=== PATIENT | female | born 1985 | race Caucasian/White ===

== ENCOUNTER 2019-08-30 19:58 | Emergency (ER) | payer OTHER, SELFPAY ==
[2019-08-30 20:04] VITALS: BP 134/75; PULSE 60; RESP 18; TEMP 37.4; O2SAT 100; BMI 27.3
--- NOTE | 2019-08-30 20:12 | ECG_ITS ---
Measurements Intervals [place] Rate: 56 P: 21 PA: 154 QRS: 35 QRSD: 98 T: 30 QT: 419 QTc: 405 SINUS BRADYCARDIA WITH SINUS ARRHYTHMIA No previous ECG available for comparison Electronically Signed On 08-31-2019 10:01:49 CDT by Zac Danielle M.D. [email or web address]
--- NOTE | 2019-08-30 20:13 | XRR_ITS ---
PROCEDURE INFORMATION: Exam: XR Chest, 1 View Exam date and time: 08/30/2019 9:18 PM Age: 34 years old Clinical indication: Cough TECHNIQUE: Imaging protocol: XR of the chest Views: 1 view. COMPARISON: CR Chest 1 [place] [id number] 07/23/2013 4:23 PM FINDINGS: Lungs: No focal peripheral lung consolidation, air bronchogram formation, or silhouette sign. Pleural space: No pleural effusion or pneumothorax. Heart/Mediastinum: The cardiac silhouette is not enlarged. The mediastinal contours are normal. Bones/joints: No acute osseous abnormality. XR/XR chest 1V portable [id number] IMPRESSION: No radiographic evidence of pneumonia.
--- NOTE | 2019-08-30 20:21 | W.ED.CHESTPA ---
HPI - Chest Pain General: Chief Complaint: Chest Pain Stated Complaint: CP Time Seen by Provider: 08/30/19 20:11 History of Present Illness: HPI narrative: Amy is a 34-year-old female who comes in complaining of feeling lightheaded and dizzy with occasional sharp right-sided chest pains. She has had the symptoms numerous times in the past but today was worse than normal. She is unaware of any exacerbating or alleviating factors. She is had this worked up only one other time and it was diagnosed as anxiety. Patient states that currently she just feels weak and tired. Associated symptoms: Deny abdominal pain, diaphoresis, dyspnea, fever(s), nausea, palpitations, syncope or vomiting Review of Systems General: Reports: other (negative unless marked) Const: Denies: fever, chills, body aches, fatigue, malaise or diaphoresis Eyes: Denies: change in vision or blurry vision ENMT: Denies: throat pain, painful swallowing, hoarseness, ear pain, ear discharge, Change in hearing or nasal discharge Card: Reports: chest pain; Denies: palpitations, irregular heart rhythm, syncope, pre-syncope, shortness of breath on exertion or shortness of breath when lying down Resp: Denies: shortness of breath, productive cough, non-productive cough, wheezing, coughing up blood or chest congestion GI: Denies: abdominal pain, nausea, vomiting, vomiting blood, coffee grounds in vomit, diarrhea, constipation, cramping, blood in stool or black tarry stool : Denies: flank pain, painful urination, urinary frequency, urinary urgency, decreased urine ouput, urinary incontinence or blood in urine Musc: Denies: neck pain, back pain, extremity pain, extremity swelling, joint pain, joint swelling, joint warmth or joint stiffness Skin/Breast: Denies: rash, skin tenderness or yellow skin Neuro: Denies: headache, numbness in extremities, weakness in extremities, changes in sensation, lack of coordination, difficulty walking, dizziness, vertigo or confusion Endo: Denies: excessive thirst, tired all the time, cold intolerance, excessive sweating, flushing or hot flashes Jeff/Lymph: Denies: easy bruising, easy bleeding, petechiae or enlarged lymph nodes All/Imm: Denies: hives, throat swelling, tongue swelling, facial swelling or acute wheezing PFSH ED PFS: Medical History (Updated 08/30/19 @ 21:38 by Melisa Brandon) No pertinent past medical history Surgical History (Updated 08/30/19 @ 20:50 by Melisa Brandon) No history of previous surgery Social History Smoking and tobacco status: current every day smoker Female Reproductive History: Date of last menstrual period: 08/04/19 Physical Exam Const: COMMON NORMALS: no apparent distress, oriented x3, no limitations, healthy appearing and well nourished EXAM LIMITATIONS: no altered mental status GENERAL APPEARANCE: cooperative, well kempt and well developed ORIENTATION/CONSCIOUSNESS: Yes awake HENMT: COMMON NORMALS: normocephalic, head/scalp atraumatic, hearing grossly normal bilaterally, external ears normal, EAC's normal, external nose normal and moist oral mucous membranes HEAD & SCALP: normal to inspection, normocephalic and atraumatic FACE & SINUS: normal facial exam and face symmetric NOSE: external nose normal and nares normal EXTERNAL EAR: Yes external ears normal EXTERNAL AUDITORY CANAL: EAC's normal MOUTH: oral and palatal mucosa normal and tongue normal Eye: COMMON NORMALS: PERRL, EOMs intact bilaterally, conjunctivae normal and no scleral icterus GENERAL EYE: normal appearance of both eyes and normal light reflex CONJUNCTIVA: Yes conjunctivae normal SCLERA: sclerae normal CORNEA: Yes corneas normal PUPIL: Yes PERRL DIRECT OPHTHALMOSCOPY: Yes normal light reflex Neck/C-Spine: COMMON NORMALS: full ROM, no lymphadenopathy, supple, no meningeal signs and no JVD GENERAL: Yes normal visual inspection and Yes trachea midline CERVICAL SPINE: Yes cervical ROM normal Chest: COMMONS NORMALS: inspection of chest normal and palpation of chest normal Resp: COMMON NORMALS: normal respiratory effort, no retractions, no use of accessory muscles and clear to auscultation bilaterally EFFORT & INSPECTION: Yes able to speak in complete sentences AUSCULTATION: clear to auscultation bilaterally Cardio: COMMON NORMALS: no JVD, regular rate, regular rhythm, S1 normal heart sound, S2 normal heart sound, no gallops, no clicks, no murmurs and no rub JUGULAR VENOUS DISTENTION: no JVD RATE: regular rate RHYTHM: regular rhythm HEART SOUNDS: S1 normal and S2 normal GI: COMMON NORMALS: soft to palpation, non-tender, no hepatosplenomegaly and no masses INSPECTION: Yes normal to inspection PALPATION: Yes soft and Yes no hepatosplenomegaly : COMMON NORMALS: Yes no CVA tenderness BLADDER/KIDNEY EXAM: Yes no CVA tenderness Back/Pelvis: COMMON NORMALS: no CVA tenderness, thoracic and lumbar spine normal to inspection, no thoracic nor lumbar tenderness and thoraco-lumbar ROM normal Extremity: COMMON NORMALS: normal to inspection, full ROM, normal capillary refill, no joint enlargement, no clubbing, cyanosis or edema and no calf tenderness Neuro: COMMON NORMALS: oriented x3, CN's II-XII intact bilaterally, moves all extremities, no focal motor deficits and no sensory deficits noted MENINGEAL SIGNS: Yes no meningeal signs Psych: COMMON NORMALS: mental status grossly normal, thought process normal, cooperative, affect normal, speech normal and activity/motor behavior normal APPEARANCE: Yes well kempt SPEECH: Yes normal speech THOUGHT PROCESS: normal thought process Skin: COMMON NORMALS: no rashes or lesions noted, skin turgor normal, no jaundice, no petechiae and no mottling GENERAL SKIN EXAM: no rashes or lesions noted and turgor normal Course Vital Signs: Vital signs: Vital Signs Temperature 97.0 F L 08/30/19 21:56 Pulse Rate 65 08/30/19 21:56 Respiratory Rate 16 08/30/19 21:56 Blood Pressure 124/80 08/30/19 21:56 Pulse Oximetry 97 08/30/19 21:56 MDM - Chest Pain MDM Narrative: Medical decision making narrative: Amy is a 34-year-old female who comes in complaining of palpitations. She is had numerous spells like this in the past but a cause cannot be determined. Admittedly she is only gone to the doctor one time for that. Here her EKG shows a sinus arrhythmia with no acute blocks, ST segment changes or other concerning findings. Specifically there is no evidence of Xjzup-Tnirbrvbi-Xwvih syndrome, obstructed AV pathway, bundle branch block bifascicular block, Brugada syndrome, Zrre-Zuiebb-Rlwmex syndrome, epsilon wave, or short or long QT syndrome. The patient has not had any chest discomfort except for occasional sharp pain. Her d-dimer is negative. She does not describe any ripping or tearing sensation or migration of her pain. She has a normal chest x-ray and equal pulses in her carotids, radial pulses, femoral pulses, popliteal pulses and dorsalis pedis pulses. I see no sign of acute coronary syndrome aortic dissection or pulmonary embolism. The patient's potassium is slightly low which could cause an occasional skipped beat or sensation of palpitations. The patient is taken some potassium here and her magnesium is normal. Patient agrees to follow-up as an outpatient with a government gauger or return here if she has any more symptoms. She declines waiting for a second EKG and troponin. Lab Data: Attestation: I reviewed the patient's lab results. Labs: Lab Results 08/30/19 08/30/19 08/30/19 Range/Units 20:26 20:26 20:26 WBC 8.8 (4.0-10.0) 10^3/ uL RBC 4.39 (4.1-5.3) 10^6/u L Hgb 13.1 (11.5-15.3) g/dL Hct 39.5 (37.0-47.0) % MCV 90.0 (81-99) fL MCH 29.8 (28.0-34.0) pg MCHC 33.2 (30.0-36.0) g/dL RDW 12.4 (12.1-15.1) % Plt Count 209 (130-400) 10^3/c mm MPV 10.9 H (7.4-10.4) fL Neut % (Auto) 45.7 % Lymph % (Auto) 43.3 % [place] % (Auto) 8.5 % Eos % (Auto) 1.7 % Baso % (Auto) 0.6 % Neut # (Auto) 4.0 (1.8-7.7) 10^3/u L Lymph # (Auto) 3.8 (0.8-4.8) 10^3/u L [place] # (Auto) 0.8 (0.2-0.9) 10^3/u L Eos # (Auto) 0.2 (0.0-0.8) 10^3/u L Baso # (Auto) 0.1 (0.0-0.1) 10^3/u L Nucleated RBC % (a uto) 0 % Nucleated RBCs # 0.0 /100WBC D-Dimer (0-0.59) ug/mIFE U Sodium 137 (136-145) mmol/L Potassium 3.2 L (3.5-5.1) mmol/L Chloride 101 (98-107) mmol/L Carbon Dioxide 23 (22-29) mmol/L Anion Gap 16.2 (5-19) BUN 12 (6-20) mg/dL Creatinine 0.9 (0.5-0.9) mg/dL GFR Calculation 72.1 L (90-130) mL/min Glucose 112 (65-115) mg/dL Calculated Osmolal ity 281 L (285-295) mOsm/k g Calcium 9.4 (8.5-10.5) mg/dL Magnesium 2.1 (1.7-2.3) mg/dL Total Bilirubin 0.2 (0.15-1.2) mg/dL AST 19 (0-32) U/L ALT 14 (0-33) U/L Alkaline Phosphata se 79 (35-105) IU/L Troponin T Baselin e 6 (0-10) ng/mL Total Protein 7.0 (6.6-8.7) g/dL Albumin 4.3 (3.5-5.2) g/dL Globulin 2.7 (1.3-4.6) g/dL TSH 1.43 (0.27-4.20) uIU/ mL HCG, Qual (Negative) Urine Color (Yellow) Urine Appearance (CLEAR) Urine pH (5-7) Ur Specific Gravit y (1.005-1.030) Urine Protein (Negative) Urine Glucose (UA) (Normal) Urine Ketones (Negative) Urine Blood (Negative) Urine Nitrate (Negative) Urine Bilirubin (NEGATIVE) Urine Urobilinogen (Negative) mg/dL Ur Leukocyte Lynn ase (Negative) Urine RBC (0-2) /hpf Urine WBC (0-5) /hpf Ur Squamous Epith Cells (0-5) Urine Bacteria (NONE) Urine Opiates Scre en (Negative) ng/mL Ur Barbiturates Sc reen (Negative) ng/mL Ur Phencyclidine S crn (Negative) ng/mL Ur Amphetamines Sc reen (Negative) ng/mL U Benzodiazepines Scrn (Negative) ng/mL Urine Cocaine Scre en (Negative) ng/mL U Marijuana (THC) Screen (Negative) ng/mL 08/30/19 08/30/19 08/30/19 Range/Units 20:26 20:26 20:45 WBC (4.0-10.0) 10^3/ uL RBC (4.1-5.3) 10^6/u L Hgb (11.5-15.3) g/dL Hct (37.0-47.0) % MCV (81-99) fL MCH (28.0-34.0) pg MCHC (30.0-36.0) g/dL RDW (12.1-15.1) % Plt Count (130-400) 10^3/c mm MPV (7.4-10.4) fL Neut % (Auto) % Lymph % (Auto) % [place] % (Auto) % Eos % (Auto) % Baso % (Auto) % Neut # (Auto) (1.8-7.7) 10^3/u L Lymph # (Auto) (0.8-4.8) 10^3/u L [place] # (Auto) (0.2-0.9) 10^3/u L Eos # (Auto) (0.0-0.8) 10^3/u L Baso # (Auto) (0.0-0.1) 10^3/u L Nucleated RBC % (a uto) % Nucleated RBCs # /100WBC D-Dimer 0.36 (0-0.59) ug/mIFE U Sodium (136-145) mmol/L Potassium (3.5-5.1) mmol/L Chloride (98-107) mmol/L Carbon Dioxide (22-29) mmol/L Anion Gap (5-19) BUN (6-20) mg/dL Creatinine (0.5-0.9) mg/dL GFR Calculation (90-130) mL/min Glucose (65-115) mg/dL Calculated Osmolal ity (285-295) mOsm/k g Calcium (8.5-10.5) mg/dL Magnesium (1.7-2.3) mg/dL Total Bilirubin (0.15-1.2) mg/dL AST (0-32) U/L ALT (0-33) U/L Alkaline Phosphata se (35-105) IU/L Troponin T Baselin e (0-10) ng/mL Total Protein (6.6-8.7) g/dL Albumin (3.5-5.2) g/dL Globulin (1.3-4.6) g/dL TSH (0.27-4.20) uIU/ mL HCG, Qual Negative (Negative) Urine Color Yellow (Yellow) Urine Appearance Sl hazy (CLEAR) Urine pH 7 (5-7) Ur Specific Gravit y 1.010 (1.005-1.030) Urine Protein Neg (Negative) Urine Glucose (UA) Norm (Normal) Urine Ketones Negative (Negative) Urine Blood Neg (Negative) Urine Nitrate Negative (Negative) Urine Bilirubin Neg (NEGATIVE) Urine Urobilinogen Norm (Negative) mg/dL Ur Leukocyte Lynn ase Trace H (Negative) Urine RBC 0-4 H (0-2) /hpf Urine WBC 5-10 H (0-5) /hpf Ur Squamous Epith Cells 5-10 H (0-5) Urine Bacteria 1+ H (NONE) Urine Opiates Scre en (Negative) ng/mL Ur Barbiturates Sc reen (Negative) ng/mL Ur Phencyclidine S crn (Negative) ng/mL Ur Amphetamines Sc reen (Negative) ng/mL U Benzodiazepines Scrn (Negative) ng/mL Urine Cocaine Scre en (Negative) ng/mL U Marijuana (THC) Screen (Negative) ng/mL 08/30/19 Range/Units 20:45 WBC (4.0-10.0) 10^3/ uL RBC (4.1-5.3) 10^6/u L Hgb (11.5-15.3) g/dL Hct (37.0-47.0) % MCV (81-99) fL MCH (28.0-34.0) pg MCHC (30.0-36.0) g/dL RDW (12.1-15.1) % Plt Count (130-400) 10^3/c mm MPV (7.4-10.4) fL Neut % (Auto) % Lymph % (Auto) % [place] % (Auto) % Eos % (Auto) % Baso % (Auto) % Neut # (Auto) (1.8-7.7) 10^3/u L Lymph # (Auto) (0.8-4.8) 10^3/u L [place] # (Auto) (0.2-0.9) 10^3/u L Eos # (Auto) (0.0-0.8) 10^3/u L Baso # (Auto) (0.0-0.1) 10^3/u L Nucleated RBC % (a uto) % Nucleated RBCs # /100WBC D-Dimer (0-0.59) ug/mIFE U Sodium (136-145) mmol/L Potassium (3.5-5.1) mmol/L Chloride (98-107) mmol/L Carbon Dioxide (22-29) mmol/L Anion Gap (5-19) BUN (6-20) mg/dL Creatinine (0.5-0.9) mg/dL GFR Calculation (90-130) mL/min Glucose (65-115) mg/dL Calculated Osmolal ity (285-295) mOsm/k g Calcium (8.5-10.5) mg/dL Magnesium (1.7-2.3) mg/dL Total Bilirubin (0.15-1.2) mg/dL AST (0-32) U/L ALT (0-33) U/L Alkaline Phosphata se (35-105) IU/L Troponin T Baselin e (0-10) ng/mL Total Protein (6.6-8.7) g/dL Albumin (3.5-5.2) g/dL Globulin (1.3-4.6) g/dL TSH (0.27-4.20) uIU/ mL HCG, Qual (Negative) Urine Color (Yellow) Urine Appearance (CLEAR) Urine pH (5-7) Ur Specific Gravit y (1.005-1.030) Urine Protein (Negative) Urine Glucose (UA) (Normal) Urine Ketones (Negative) Urine Blood (Negative) Urine Nitrate (Negative) Urine Bilirubin (NEGATIVE) Urine Urobilinogen (Negative) mg/dL Ur Leukocyte Lynn ase (Negative) Urine RBC (0-2) /hpf Urine WBC (0-5) /hpf Ur Squamous Epith Cells (0-5) Urine Bacteria (NONE) Urine Opiates Scre en Negative (Negative) ng/mL Ur Barbiturates Sc reen Negative (Negative) ng/mL Ur Phencyclidine S crn Negative (Negative) ng/mL Ur Amphetamines Sc reen Negative (Negative) ng/mL U Benzodiazepines Scrn Negative (Negative) ng/mL Urine Cocaine Scre en Negative (Negative) ng/mL U Marijuana (THC) Screen Negative (Negative) ng/mL Imaging Data^: CXR: My impression: No acute cardiopulmonary findings. EKG Data^: EKG 1: Attestation: I personally reviewed and interpreted this EKG as follows: EKG interpretation date: 08/30/19 EKG interpretation time: 20:26 Interpretation: Normal sinus rhythm at 56 beats a minute, sinus arrhythmia, possible U waves present, no other acute ST or T wave changes. Discharge Plan Discharge Patient Disposition: Home, Self-Care Clinical Impression: Palpitations Chest pain Qualifiers: Chest pain type: unspecified Qualified Code(s): R07.9 - Chest pain, unspecified Condition: Stable Discharge Orders: Discharge Order (Routine); Ordered 08/30/19 Ordered By: Melisa Brandon Referrals: Anival Da Silva FNP [Primary Care Provider] - Michelle Alejandra MD [Physician] - 1-3 days Discharge Diet: Advance as tolerated Discharge Activity: Increase activity as tolerated Patient Instructions: Chest Pain (ED), Palpitations (ED) Activity Restrictions/Additional Instructions: Please return to the ER immediately for any of the signs or symptoms listed on your discharge instruction sheets, worsening/changing of your symptoms, you are not getting better as quickly as expected, or for ANY other cause or concerns. You have been offered further evaluation and care including further observation and EKG testing along with troponin testing but have declined. If your symptoms worsen, you change your mind or have anything else that bothers you you are more than welcome to return to the ER for recheck. As this is a recurrent problem be certain to follow-up with Dr. Alejandra for further evaluation and care. Discharge Date/Time: 08/30/19 21:58 Coding Level of Care Code ED Public Health Registrar for Chg Fwd Exam Comprehensive
[2019-08-30 20:31] VITALS: BP 114/76; PULSE 54; RESP 18; O2SAT 99
[2019-08-30 20:32] LABS: Basophils # 0.1 10^3/uL (0.0-0.1); Basophils % 0.6 %; Eosinophils # 0.2 10^3/uL (0.0-0.8); Eosinophils % 1.7 %; Hematocrit 39.5 % (37.0-47.0); Hemoglobin 13.1 g/dL (11.5-15.3); Lymphocytes # 3.8 10^3/uL (0.8-4.8); Lymphocytes % 43.3 %; Mean Corpuscular HGB Conc 33.2 g/dL (30.0-36.0); Mean Corpuscular Hemoglobin 29.8 pg (28.0-34.0); Mean Platelet Volume 10.9 fL (7.4-10.4); Monocytes # 0.8 10^3/uL (0.2-0.9); Monocytes % 8.5 %; Neutrophils % 45.7 %; Nucleated Red Blood Cells % 0 %; Platelet Count 209 10^3/cmm (130-400); Red Blood Count 4.39 10^6/uL (4.1-5.3); Red Cell Distribution Width 12.4 % (12.1-15.1); White Blood Count 8.8 10^3/uL (4.0-10.0)
[2019-08-30] MEDS: acetaminophen 500 mg Tablet 1000 MG PO (20:37)
[2019-08-30 20:38] VITALS: BP 111/86; BP 112/86; BP 132/86; PULSE 54; PULSE 62; PULSE 64
[2019-08-30] MEDS: aspirin 325 mg Tablet PO (20:39)
[2019-08-30] MEDS: sodium chloride 0.9% 1,000 ML 100 ML IV (20:39)
[2019-08-30 20:54] LABS: HCG, Serum Qual Negative (Negative); Troponin(5th) Baseline 6 ng/mL (0-10)
[2019-08-30 20:55] VITALS: BP 113/75; PULSE 55; RESP 19; O2SAT 97
[2019-08-30 20:55] LABS: D Dimer 0.36 ug/mIFEU (0-0.59)
[2019-08-30 21:02] LABS: Alanine Aminotransferase 14 U/L (0-33); Albumin Level 4.3 g/dL (3.5-5.2); Alkaline Phosphatase 79 IU/L (35-105); Anion Gap 16.2 (5-19); Aspartate Amino Transferase 19 U/L (0-32); Blood Urea Nitrogen 12 mg/dL (6-20); Calcium 9.4 mg/dL (8.5-10.5); Carbon Dioxide 23 mmol/L (22-29); Chloride 101 mmol/L (98-107); Globulin 2.7 g/dL (1.3-4.6); Glomerular Filtration Rate 72.1 mL/min (90-130); Glucose 112 mg/dL (65-115); Magnesium 2.1 mg/dL (1.7-2.3); Osmolality Calculated 281 mOsm/kg (285-295); Potassium 3.2 mmol/L (3.5-5.1); Sodium 137 mmol/L (136-145); Thyroid Stimulating Hormone 1.43 uIU/mL (0.27-4.20); Total Bilirubin 0.2 mg/dL (0.15-1.2)
[2019-08-30 21:12] LABS: Amphetamines Screen Urine Negative (Negative); Barbiturates Screen Urine Negative (Negative); Benzodiazepines Screen Urine Negative (Negative); Cocaine Screen Urine Negative (Negative); Opiate Screen Urine Negative (Negative); PCP Screen Urine Negative (Negative); THC Screen Urine Negative (Negative)
[2019-08-30 21:15] LABS: Bacteria Urine 1+; Bilirubin Urine Neg (NEGATIVE); Blood Urine Neg (Negative); Glucose Urine UA Norm (Normal); Ketones Urine Negative (Negative); Leukocyte Esterase Urine Trace (Negative); Nitrate Urine Negative (Negative); Protein Urine Neg (Negative); RBC Urine 0-4 /hpf (0-2); Urine Appearance SL Hazy (CLEAR); Urine Color Yellow (Yellow); Urobilinogen Urine Norm (Negative); pH Urine 7 (5-7)
[2019-08-30] MEDS: potassium chloride oral liq 20 mEq/15 mL UDC 40 MEQ PO (21:28)
[2019-08-30 21:56] VITALS: BP 124/80; PULSE 65; RESP 16; TEMP 36.1; O2SAT 97
== END 2019-08-30 21:58 | disposition home or self-care (01) ==
PROVIDERS: Emergency Provider Emergency Medicine; Family Provider Nurse Practitioner Family; PCP Nurse Practitioner Family
DX: R07.9 Chest pain, unspecified (principal); R00.2 Palpitations; F17.200 Nicotine dependence, unspecified, uncomplicated
CPT/HCPCS: 12345; 71045; 80053; 80306; 81001; 83735; 84443; 84484; 84703; 85025; 85378; 93005; 96360; 96361; 99284; J7030

== ENCOUNTER 2020-01-22 15:35 | Emergency (ER) | payer OTHER, SELFPAY ==
[2020-01-22 15:42] VITALS: BP 115/70; PULSE 69; RESP 18; TEMP 36.2; O2SAT 99; BMI 26.4
--- NOTE | 2020-01-22 15:57 | ED_ITS ---
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 in OR here in the hospital day and when she was closing the case she stuck her left index finger with the needle and mandie blood complaint: Needlestick injury Onset (ago): minute(s) Associated symptoms: Deny chest pain, dyspnea, headache(s), nausea, rash or vomiting Review of Systems Const: Denies: fever(s), chills or body aches Eyes: Denies: change in vision or blurry vision ENMT: Denies: throat pain or nasal congestion Card: Denies: chest pain or dyspnea on exertion Resp: Denies: dyspnea, productive cough or non-productive cough GI: Denies: abdominal pain, nausea or vomiting Musc: Reports: extremity pain (Needlestick to finger left hand) Skin/Breast: Denies: rash Neuro: Denies: headache(s) Psych: Denies: anxiety or depression Jeff/Lymph: Denies: easy bruising PFSH ED PFSH: Medical History (Updated 01/22/20 @ 15:57 by MARTHA Gallardo) No pertinent past medical history Surgical History No history of previous surgery Family History Other CAD (coronary artery disease) Cancer Hyperlipidemia Hypertension Stroke Social History Smoking and tobacco status: current every day smoker cigarettes Packs smoked per day: 0.5 Alcohol intake: never Female Reproductive History: Date of last menstrual period: 08/04/19 Physical Exam Const: COMMON NORMALS: no acute distress Skin: OTHER: Puncture wound left hand finger Course Vital Signs: Vital signs: Vital Signs Temperature 97.1 F L 01/22/20 15:42 Pulse Rate 69 01/22/20 15:42 Respiratory Rate 18 01/22/20 15:42 Blood Pressure 115/70 01/22/20 15:42 Pulse Oximetry 99 01/22/20 15:42 Discharge Plan Discharge Patient Disposition: Home Clinical Impression: Accidental hypodermic needlestick injury Condition: Stable Prescriptions: No Action multivitamin Capsule 1 cap PO DAILY RF: 0 fexofenadine [Mikayla Allergy] 180 mg tablet 180 mg PO DAILY RF: 0 Discharge Orders: Discharge Order (Routine); Ordered 01/22/20 Ordered By: Anival Da Silva Referrals: Anival Da Silva, MARTHA [Primary Care Provider] - Discharge Diet: Usual diet Discharge Activity: Resume usual activity Patient Instructions: Blood/Body Fluid Exposure - Occupational, Needle Stick Injuries (ED) Activity Restrictions/Additional Instructions: Follow-up with employee health as directed follow guidance in needlestick policy the hospital provides, if any signs and symptoms of infection develop please let play health no Coding Level of Care Code ED Car Lubricator for Rashaad Winchester
[2020-01-22 16:31] VITALS: BP 115/77; PULSE 68; RESP 14; O2SAT 100
[2020-01-22 17:13] LABS: HIV 1 & 2 Antibody Non-Reactive (Non-Reactiv); HIV 1 & 2 Antigen Non-Reactive (Non-Reactiv)
[2020-01-22 17:20] LABS: Hepatitis A Antibody IgM Non-Reactive (Nonreactive); Hepatitis B Core IgM Non-Reactive (Nonreactive); Hepatitis B Surface Antigen Non-Reactive (Nonreactive); Hepatitis C Virus Antibody Non-Reactive (Nonreactive)
== END 2020-01-22 16:32 | disposition home or self-care (01) ==
LOC: ER 16:06
PROVIDERS: Emergency Provider Nurse Practitioner Family
DX: S61.231A Puncture wound without foreign body of left index finger without damage to nail, initial encounter (principal); W46.0XXA Contact with hypodermic needle, initial encounter; Y92.234 Operating room of hospital as the place of occurrence of the external cause; F17.210 Nicotine dependence, cigarettes, uncomplicated
CPT/HCPCS: 12345; 36415; 80074; 87806; 99281; 99282

== ENCOUNTER → 2020-02-26 11:06 | Outpatient (BNVA) | payer OTHER, SELFPAY | PROVIDERS: Visit Provider Family Medicine | DX: Z20.828 Contact with and (suspected) exposure to other viral communicable diseases (principal) | CPT/HCPCS: 87635 ==

== ENCOUNTER → 2020-03-17 12:54 | Outpatient (BNVA) | payer OTHER, SELFPAY | PROVIDERS: Visit Provider Family Medicine | DX: Z11.59 Encounter for screening for other viral diseases (principal); Z20.828 Contact with and (suspected) exposure to other viral communicable diseases | CPT/HCPCS: 87635 ==

== ENCOUNTER → 2020-03-19 12:32 | Outpatient (BNVA) | payer OTHER, SELFPAY | PROVIDERS: Visit Provider Family Medicine | DX: Z11.59 Encounter for screening for other viral diseases (principal); Z20.828 Contact with and (suspected) exposure to other viral communicable diseases | CPT/HCPCS: 87635 ==

== ENCOUNTER → 2020-07-03 08:13 | Outpatient (BNVA) | payer OTHER, BC, SELFPAY | PROVIDERS: Visit Provider Nurse Practitioner | DX: Z20.822 Contact with and (suspected) exposure to COVID-19 (principal) | CPT/HCPCS: 87635 ==

== ENCOUNTER 2021-05-27 09:34 | Emergency (ER) | payer OTHER, SELFPAY ==
[2021-05-27 09:47] VITALS: BP 118/84; PULSE 64; RESP 16; TEMP 36.7; O2SAT 99; BMI 27.1
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
--- NOTE | 2021-05-27 10:33 | XR_ITS ---
WS: [id number] Left leg including the tibia and fibula, AP and lateral views, 05/27/2021 Clinical Data: trauma Comparison: None. Findings: No fractures or dislocations are seen. The tibia and fibula are intact. The soft tissues are normal. XR/XR tibia fibula LT 2V 13518 Impression: Negative for fracture.
[2021-05-27] MEDS: ibuprofen 800 mg tablet PO (11:06)
[2021-05-27 11:30] VITALS: BP 119/67; PULSE 68; RESP 14; O2SAT 99
== END 2021-05-27 11:31 ==
PROVIDERS: Emergency Provider Nurse Practitioner Family
DX: Z04.1 Encounter for examination and observation following transport accident (principal); V89.2XXA Person injured in unspecified motor-vehicle accident, traffic, initial encounter; F17.210 Nicotine dependence, cigarettes, uncomplicated
CPT/HCPCS: 73590; 99283

== ENCOUNTER 2021-06-01 15:45 | Outpatient (CLI) | payer OTHER, SELFPAY ==
--- NOTE | 2021-06-01 15:58 | XR_ITS ---
WS: [id number] XR cervical spine 3V* [id number] REASON FOR EXAM: CERVICAL PAIN FINDINGS: Mild reversal of the normal lordosis of the cervical spine above the C6 level. No vertebral body compression deformity or other focal vertebral body abnormality. Mild narrowing of the C7-T1 disc interspace. Mild/moderate change in the facet joints at C7-T1. XR/XR cervical spine 3V* [id number] IMPRESSION: Abnormal alignment of the cervical spine as above. Degenerative spondylosis at C7-T1.
== END 2021-06-01 15:46 | disposition home or self-care (01) ==
LOC: RAD 15:51
PROVIDERS: PCP Family Medicine; Visit Provider Family Medicine
DX: M54.12 Radiculopathy, cervical region (principal); M47.813 Spondylosis without myelopathy or radiculopathy, cervicothoracic region
CPT/HCPCS: 72040

== ENCOUNTER 2021-06-29 10:34 | Observation (INO) | payer BC, SELFPAY ==
[2021-06-29 11:34] VITALS: BP 126/85; PULSE 88; RESP 18; TEMP 37.1; O2SAT 99; BMI 27.0
--- NOTE | 2021-06-29 11:54 | US_ITS ---
WS: [id number] EARLY OBSTETRICAL ULTRASOUND (<14 WEEKS). HISTORY: eval for ectopic preg, status post RIGHT oophorectomy and tubal ligation. COMPARISON: No similar studies. Transvaginal imaging is performed. There is an irregular shaped fluid collection in the endometrial c anal. Not a typical appearance for a gestational sac, or a normal gestational sac. The collection is elongated. If this is a gestational sac measurements correspond to gestation of 6 weeks and 3 days. No RIGHT adnexal mass. The RIGHT ovary was removed. In the LEFT adnexa the ovary is identified and contain several cysts. There is a thick wall cyst with slight increased vascularity which is probably a corpus luteum. The largest cyst measures 1.5 x 1.7 x 1.3 cm. Just lateral to the LEFT ovary is a hypoechoic mass with a central cystic structure. This i s a thick wall cystic structure with only minimal peripheral increased vascularity. This structure me asures 1.9 x 1.6 x 1.9 cm and is suspicious for an ectopic . Small amount of free fluid in the cul-de-sac. US/US OB <=14 wk fetus w transvag IMPRESSION: 1. Small amount of fluid along the endometrial canal but no yolk sac or pole identified. 2. Thick-walled mass within the LEFT adnexa just lateral to the ovary highly s uspicious for an ectopic . Recommend serial follow-up beta hCG levels and possible repeat ultrasound if necessary. 3. Small amount of free fluid in the cul-de-sac. Notified Aung Feliciano MD at 06/29/2021 1:34 PM.
[2021-06-29 14:08] LABS: Basophils % 0.5 %; Eosinophils % 0.5 %; Hematocrit 39.7 % (37.0-47.0); Hemoglobin 13.4 g/dL (11.5-15.3); Lymphocytes % 25.3 %; Mean Corpuscular HGB Conc 33.8 g/dL (30.0-36.0); Mean Corpuscular Hemoglobin 29.8 pg (28.0-34.0); Mean Corpuscular Volume 88.2 fl (81-99); Mean Platelet Volume 10.4 fL (7.4-10.4); Monocytes # 0.5 10^3/uL (0.2-0.9); Monocytes % 6.6 %; Neutrophils # 5.25 10^3/uL (1.8-7.7); Neutrophils % 66.8 %; Nucleated Red Blood Cells % 0 %; Platelet Count 241 10^3/cmm (130-400); Red Cell Distribution Width 12.6 % (12.1-15.1); White Blood Count 7.9 10^3/uL (4.0-10.0)
--- NOTE | 2021-06-29 14:43 | W.ED.PREGNAN ---
Documented by User: [email or web address] Buckley 06/29/21 16:35 HPI - General: Chief complaint: OB/Uterine Contractions Stated complaint: Sent from [facility] office for lab and US Time Seen by Provider: 06/29/21 14:04 History of Present Illness: Patient is a 35-year-old female that was sent by Dr. Crook with concerns for an ectopic . Patient had a tubal ligation performed approximately 7 years ago. She is currently in the process of getting set up with a doctor in [place] to perform reversal. Her last menstrual period was on May 21, 2021. She had a positive test today and contacted Dr. Crook. He told her to come to the ED to get labs and an ultrasound done for suspicion for an ectopic . Patient is currently asymptomatic. She is not having any vaginal bleeding, vaginal discharge, abdominal pain, nausea/vomiting, fever or chills. Date of Last Menstrual Period: 05/20/21 Associated symptoms: Deny abdominal pain, dysuria, headache(s), nausea or vomiting Review of Systems Const: Denies: fever(s), chills or fatigue Eyes: Denies: change in vision or eye discomfort ENMT: Denies: throat pain, odynophagia, nasal discharge or nasal congestion Card: Denies: chest pain, palpitations, edema, swelling of feet/ankles, dyspnea on exertion or orthopnea Resp: Denies: dyspnea, productive cough or non-productive cough GI: Denies: abdominal pain, nausea, vomiting, diarrhea, constipation or hematochezia : Denies: flank pain, dysuria or hematuria Musc: Denies: neck pain, back pain or extremity swelling Skin/Breast: Denies: rash or new lesions Neuro: Denies: headache(s) PFSH ED PFSH: Medical History (Updated 06/29/21 @ 17:54 by Gianni Lynn MD) No pertinent past medical history Denies diabetes, asthma, hypertension, seizures, DVT/PE PMD: Dr. Martinez in [facility] Surgical History (Updated 06/29/21 @ 17:54 by Gianni Lynn MD) History of tubal ligation 2009- tubal ligation by Dr. Tim via umbilicus Status post unilateral salpingo-oophorectomy 2015---laparoscopic right salpingo-oophorectomy performed for a 10 cm dermoid cyst performed by Dr. De Souza at [facility] [place]. Pelvic washings were negative for malignancy. 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 Fallopian tube pathology was benign. ---> At the time of surgery normal left ovary and signs of tubal ligation noted on left tube Family History (Updated 06/29/21 @ 17:57 by Gianni Lynn MD) Father CAD (coronary artery disease) Grandfather CAD (coronary artery disease) Maternal Diabetes Paternal Grandmother Cancer Breast cancer in maternal grandmother and great grand mother Other Hyperlipidemia Female Reproductive History: Date of last menstrual period: 05/20/21 Physical Exam Const: COMMON NORMALS: no acute distress, patient oriented x3 and alert HENMT: COMMON NORMALS: normocephalic HEAD & SCALP: normocephalic MOUTH: Normal oral and palatal mucosa present THROAT: posterior oropharynx normal and uvula midline Neck/C-Spine: COMMON NORMALS: supple GENERAL: Yes normal visual inspection Resp: COMMON NORMALS: normal respiratory effort, No retractions, No use of accessory muscles and clear to auscultation bilaterally AUSCULTATION: clear to auscultation bilaterally Cardio: COMMON NORMALS: regular rate, regular rhythm, S1 normal heart sound present, S2 normal heart sound present, No gallops present (Cardio), No clicks present (Cardio), No murmurs present (Cardio) and Peripheral pulses 2+ throughout RATE: regular rate RHYTHM: regular rhythm HEART SOUNDS: S1 normal heart sound present and S2 normal heart sound present PERIPHERAL PULSES: Peripheral pulses 2+ throughout GI: COMMON NORMALS: Normal to inspection, nondistended, normoactive bowel sounds present, Soft to palpation, non-tender and no masses PALPATION: Yes Soft to palpation : COMMON NORMALS: Yes no CVA tenderness BLADDER/KIDNEY EXAM: Yes no CVA tenderness Back/Pelvis: COMMON NORMALS: no CVA tenderness Extremity: COMMON NORMALS: normal to inspection Neuro: COMMON NORMALS: patient oriented x3 and moves all extremities SENSORIUM/ORIENTATION: Yes alert Skin: GENERAL SKIN EXAM: dry skin Course Reevaluation(s): Reevaluation #1: I contacted Dr. De Souza and told her about patient case and her being after tubal ligation. Ultrasound findings suggestive for possible ectopic . She is going to come here to the ED and evaluate patient and then decide on plan of care. Vital Signs: Vital signs: Vital Signs Temperature 98.7 F 06/29/21 11:34 Pulse Rate 81 06/29/21 17:25 Respiratory Rate 18 06/29/21 17:25 Blood Pressure 121/72 06/29/21 17:25 Pulse Oximetry 99 06/29/21 11:34 MDM - OB/Uterine Contractions Lab Data I reviewed the patient's lab results. : 06/29/21 14:01 06/29/21 14:01 Radiology Impressions Obstetrics Ultrasound 06/29/21 11:54 IMPRESSION: 1. Small amount of fluid along the endometrial canal but no yolk sac or pole identified. 2. Thick-walled mass within the LEFT adnexa just lateral to the ovary highly suspicious for an ectopic . Recommend serial follow-up beta hCG levels and possible repeat ultrasound if necessary. 3. Small amount of free fluid in the cul-de-sac. Notified Aung Feliciano MD at 06/29/2021 1:34 PM. Laboratory Results WBC 7.9 10^3/uL (4.0-10.0) 06/29/21 14:01 RBC 4.50 10^6/uL (4.1-5.3) 06/29/21 14:01 Hgb 13.4 g/dL (11.5-15.3) 06/29/21 14:01 Hct 39.7 % (37.0-47.0) 06/29/21 14:01 MCV 88.2 fl (81-99) 06/29/21 14:01 MCH 29.8 pg (28.0-34.0) 06/29/21 14:01 MCHC 33.8 g/dL (30.0-36.0) 06/29/21 14:01 RDW 12.6 % (12.1-15.1) 06/29/21 14:01 Plt Count 241 10^3/cmm (130-400) 06/29/21 14:01 MPV 10.4 fL (7.4-10.4) 06/29/21 14:01 Neut % (Auto) 66.8 % 06/29/21 14:01 Lymph % (Auto) 25.3 % 06/29/21 14:01 [place] % (Auto) 6.6 % 06/29/21 14:01 Eos % (Auto) 0.5 % 06/29/21 14:01 Baso % (Auto) 0.5 % 06/29/21 14:01 Neut # (Auto) 5.25 10^3/uL (1.8-7.7) 06/29/21 14:01 Lymph # (Auto) 2.0 10^3/uL (0.8-4.8) 06/29/21 14:01 [place] # (Auto) 0.5 10^3/uL (0.2-0.9) 06/29/21 14:01 Eos # (Auto) 0.0 10^3/uL (0.0-0.8) 06/29/21 14:01 Baso # (Auto) 0.0 10^3/uL (0.0-0.1) 06/29/21 14:01 Nucleated RBC % (auto) 0 % 06/29/21 14:01 Nucleated RBCs # 0.0 /100WBC 06/29/21 14:01 Sodium 135 mmol/L (136-145) L 06/29/21 14:01 Potassium 3.9 mmol/L (3.5-5.1) 06/29/21 14:01 Chloride 103 mmol/L (98-107) 06/29/21 14:01 Carbon Dioxide 20 mmol/L (22-29) L 06/29/21 14:01 Anion Gap 15.9 (5-19) 06/29/21 14:01 BUN 7 mg/dL (6-20) 06/29/21 14:01 Creatinine 0.7 mg/dL (0.5-0.9) 06/29/21 14:01 GFR Calculation 95.8 mL/min (90-130) 06/29/21 14:01 Glucose 84 mg/dL (65-115) 06/29/21 14:01 Calculated Osmolality 277 mOsm/kg (285-295) L 06/29/21 14:01 Calcium 9.5 mg/dL (8.5-10.5) 06/29/21 14:01 Total Bilirubin 0.5 mg/dL (0.15-1.2) 06/29/21 14:01 AST 12 U/L (0-32) 06/29/21 14:01 ALT 7 U/L (0-33) 06/29/21 14:01 Alkaline Phosphatase 70 IU/L (35-105) 06/29/21 14:01 Total Protein 7.2 g/dL (6.6-8.7) 06/29/21 14:01 Albumin 4.7 g/dL (3.5-5.2) 06/29/21 14:01 Globulin 2.5 g/dL (1.3-4.6) 06/29/21 14:01 Lipase 21 U/L (13-60) 06/29/21 14:01 Ser , Semi-Qnt 1298.00 mIU/mL 06/29/21 14:01 Blood Type O Positive 06/29/21 15:33 Rho(D) Type Positive 06/29/21 15:33 Antibody Screen Negative 06/29/21 15:33 Discharge Plan Discharge Patient Disposition: Admitted As Inpatient Admit Provider: Gianni Lynn Clinical Impression: Ectopic Condition: Stable Coding Level of Care Code ED Assisted Living Executive Director for Chg Fwd Exam Comprehensive Documented by User: Luisito Smith DO 06/29/21 18:53 HPI - General: Chief complaint: OB/Uterine Contractions Stated complaint: Sent from [facility] office for lab and US Time Seen by Provider: 06/29/21 14:04 History of Present Illness: Patient is a 35-year-old female that was sent by Dr. Crook with concerns for an ectopic . Patient had a tubal ligation performed approximately 7 years ago. She is currently in the process of getting set up with a doctor in [place] to perform reversal. Her last menstrual period was on May 21, 2021. She had a positive test today and contacted Dr. Crook. He told her to come to the ED to get labs and an ultrasound done for suspicion for an ectopic . Patient is currently asymptomatic. She is not having any vaginal bleeding, vaginal discharge, abdominal pain, nausea/vomiting, fever or chills. Patient initially seen by Mike Alejandro. Work-up shows ectopic patient is being transferred to OB for care due to volumes in the ER at the moment. PFSH ED PFSH: Medical History (Updated 06/29/21 @ 17:54 by Gianni Lynn MD) No pertinent past medical history Denies diabetes, asthma, hypertension, seizures, DVT/PE PMD: Dr. Martinez in [facility] Surgical History (Updated 06/29/21 @ 17:54 by Gianni Lynn MD) History of tubal ligation 2009- tubal ligation by Dr. Tim via umbilicus Status post unilateral salpingo-oophorectomy 2015---laparoscopic right salpingo-oophorectomy performed for a 10 cm dermoid cyst performed by Dr. De Souza at [facility] [place]. Pelvic washings were negative for malignancy. 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 Fallopian tube pathology was benign. ---> At the time of surgery normal left ovary and signs of tubal ligation noted on left tube Family History (Updated 06/29/21 @ 17:57 by Gianni Lynn MD) Father CAD (coronary artery disease) Grandfather CAD (coronary artery disease) Maternal Diabetes Paternal Grandmother Cancer Breast cancer in maternal grandmother and great grand mother Other Hyperlipidemia Physical Exam Const: GENERAL APPEARANCE: cooperative and comfortable ORIENTATION/CONSCIOUSNESS: Yes awake, Yes oriented to person, Yes oriented to place and Yes oriented to time Resp: COMMON NORMALS: normal respiratory effort, No retractions, No use of accessory muscles and clear to auscultation bilaterally AUSCULTATION: clear to auscultation bilaterally Cardio: COMMON NORMALS: regular rate, regular rhythm and No murmurs present (Cardio) RATE: regular rate RHYTHM: regular rhythm Neuro: SENSORIUM/ORIENTATION: Yes oriented to person, Yes oriented to place and Yes oriented to time Course Vital Signs: Vital signs: Vital Signs Temperature 98.7 F 06/29/21 11:34 Pulse Rate 81 06/29/21 17:25 Respiratory Rate 18 06/29/21 17:25 Blood Pressure 121/72 06/29/21 17:25 Pulse Oximetry 99 06/29/21 11:34 [facility] - OB/Uterine Contractions Medical Decision Making Patient has an ectopic . Confirmed by ultrasound. Definitive care by Dr. Crook she will be transferred to OB where he will assume care. Discussed diagnosis and findings patient she consents to transfer to the OB floor. Medical Records I reviewed the patient's medical records. Lab Data : 06/29/21 14:01 06/29/21 14:01 Radiology Impressions Obstetrics Ultrasound 06/29/21 11:54
[2021-06-29 14:59] LABS: Alanine Aminotransferase 7 U/L (0-33); Albumin Level 4.7 g/dL (3.5-5.2); Alkaline Phosphatase 70 IU/L (35-105); Anion Gap 15.9 (5-19); Aspartate Amino Transferase 12 U/L (0-32); Blood Urea Nitrogen 7 mg/dL (6-20); Calcium 9.5 mg/dL (8.5-10.5); Carbon Dioxide 20 mmol/L (22-29); Chloride 103 mmol/L (98-107); Globulin 2.5 g/dL (1.3-4.6); Glomerular Filtration Rate 95.8 mL/min (90-130); Glucose 84 mg/dL (65-115); Lipase 21 U/L (13-60); Osmolality Calculated 277 mOsm/kg (285-295); Potassium 3.9 mmol/L (3.5-5.1); Sodium 135 mmol/L (136-145); Total Bilirubin 0.5 mg/dL (0.15-1.2); Total Protein 7.2 g/dL (6.6-8.7)
[2021-06-29 16:14] VITALS: BP 109/57; PULSE 76
[2021-06-29 17:12] VITALS: BP 121/72; PULSE 81
--- NOTE | 2021-06-29 17:24 | PM.OBGYHP ---
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 She has a history significant of having a bilateral tubal ligation done in 2009. She also had a laparoscopic right salpingo-oophorectomy for dermoid cyst in 2016. She has a new partner and was considering tubal reversal surgery but has not yet had that procedure. She states that her cycle in April was abnormal with light bleeding for just 2 days. She missed her cycle in May which was not normal for her and she woke up this morning with breast tenderness and she was concerned and so took a urine test. 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 -She states that she has no pain no nausea no vomiting fever chills, denies any pelvic pressure or discomfort of any kind. Allergies: Penicillin--hives-has taken Keflex in the past without any side effects Current Medications: Wellbutrin since the middle of May to help quit smoking Physical exam: Weight: 143 lbs Height: 5 pounds 1 inches BMI: 27 kg/m2 Blood pressure: 121/72 mm of mercury Pulse: 81 beats per minute Respiration: 18 breaths per minute General: well developed, well nourished, in no acute distress Neuro/Psych: alert, oriented to time, place and person. Neck: No thyromegaly Heart: S1-S2 heard, regular rate and rhythm. Lungs: Clear to auscultation bilaterally. Breast: Deferred Abdomen: Soft, nontender, no rebound, no guarding, no hepatosplenomegaly, no umbilical hernia Legs: No pedal edema no calf tenderness. Negative Homans sign Back: No CVA tenderness Skin: Normal over abdomen--well-healed laparoscopic scars from previous surgeries noted Lymph nodes: No palpable inguinal lymph nodes Pelvic exam: External genitalia: Appears normal, no lesions, normal hair Urethral meatus: Normal size, normal location Urethra: Nontender, no masses Bladder: Nontender Vagina: Appears normal, normal estrogen, no lesion, no abnormal discharge Cervix: No CMT Uterus: Mobile, nontender Adnexa: No adnexal masses Perineum/anus: Intact, hemorrhoids Present Details : 4 Para: 3 Date of Last Menstrual Period: 05/20/21 Calculated Date of Delivery: 02/24/22 Gestational Age Based on Last Menstrual Period: 5 Review of Systems General: Reports: 10 or more systems reviewed and unremarkable except in HPI and below Const: Denies: fever(s), chills, change in appetite, change in weight, fatigue, malaise or change in sleep pattern Eyes: Denies: change in vision, eye discomfort, eye discharge or seeing flashes ENMT: Denies: throat pain, odynophagia, hoarseness, bleeding gums, ear discharge, nasal discharge or nasal congestion Card: Denies: chest pain, irregular heart rhythm, edema, swelling of feet/ankles, dyspnea on exertion or leg pain with exertion Resp: Denies: dyspnea, productive cough, wheezing or chest congestion GI: Denies: abdominal pain, nausea, vomiting, heartburn, diarrhea, constipation, change in bowel habits or hematochezia : Denies: flank pain, dysuria, urinary frequency, urinary urgency, urinary incontinence, genital lesions, vaginal odor, vaginal bleeding, vaginal discharge, dysmenorrhea, change in menstrual flow, prolapse symptoms, dyspareunia or sexual dysfunction Musc: Denies: neck pain, back pain, joint pain, joint swelling or muscle cramps Skin/Breast: Reports: breast tenderness; Denies: rash, pruritus, nipple discharge or breast mass Neuro: Denies: headache(s), numbness in extremities or seizure-like activity Psych: Denies: anxiety, depression, mood swings or change in appetite Endo: Denies: cold intolerance, flushing, hot flashes or change in body appearance Jeff/Lymph: Denies: easy bruising, easy bleeding or enlarged lymph nodes All/Imm: Denies: urticaria, tongue swelling, acute wheezing or itchy eyes Medications/Allergies Home Medications Medication Instructions Recorded Confirmed Last Taken Type fexofenadine 180 mg tablet 180 mg PO DAILY 09/05/19 10/01/20 Unknown History (Mikayla Allergy) multivitamin 1 cap PO DAILY 09/05/19 10/01/20 Unknown History doxycycline hyclate 100 mg tablet 100 mg PO BID 7 Days #14 tab 10/01/20 10/01/20 Unknown Rx Allergies Allergy/AdvReac Type Severity Reaction Status Date / Time Penicillins Allergy ALGY-Anaphy Verified 06/29/21 11:33 laxis PFS CRIMINAL LEGAL ASSISTANT PFSH: Medical History (Updated 06/29/21 @ 17:54 by Gianni Lynn MD) No pertinent past medical history Denies diabetes, asthma, hypertension, seizures, DVT/PE PMD: Dr. Martinez in [facility] Surgical History (Updated 06/29/21 @ 17:54 by Gianni Lynn MD) History of tubal ligation 2009- tubal ligation by Dr. Tim via umbilicus Status post unilateral salpingo-oophorectomy 2016---laparoscopic right salpingo-oophorectomy performed for a 10 cm dermoid cyst performed by Dr. De Souza at [facility]. Pelvic washings were negative for malignancy. 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 Fallopian tube pathology was benign. ---> At the time of surgery normal left ovary and signs of tubal ligation noted on left tube Family History (Updated 06/29/21 @ 17:57 by Gianni Lynn MD) Father CAD (coronary artery disease) Grandfather CAD (coronary artery disease) Maternal Diabetes Paternal Grandmother Cancer Breast cancer in maternal grandmother and great grand mother Other Hyperlipidemia Supplemental PFS Information: Tobacco use: Started smoking at the age of 17 and has smoked at the most 1 pack of cigarettes a day. She is currently cutting down and is on Wellbutrin and is smoking 3 cigarettes a day since the middle of May. Alcohol use: Denies Drug use: Denies Work status: Works in [employer]. Used to be a surgical instrument technician at [facility]. Last well woman visit: Unknown--states she is scheduled with Dr. Martinez Other Female Reproductive History: Menstrual History Comment: Menarche at age 18 with regular 28-day cycles lasting for 3 to 4 days with light bleeding Sexual History: Sexual History Comment: Coitarche at age 18, less than 5 lifetime partner, has been with her current partner her Jamal since 2017. He also works at [employer] STD History Comment: Denies sexually transmitted diseases in the past. Contraception: Contraception History Comment: Used control pills for contraception until she had a tubal ligation in 2009. Has not used any hormones since then. History History History 4 Term 3 Miscarriages/Ectopic 0 0 Living Children 3 Other History: X 3 (kids names) 4---current - at early stage cannot rule out ectopic Vitals/I&O/Wt Last Vital Signs Temp 98.7 F 06/29/21 11:34 Pulse 81 06/29/21 17:12 Resp 18 06/29/21 11:34 BP 121/72 06/29/21 17:12 Pulse Ox 99 06/29/21 11:34 Weight last 48 hrs Weight 143 lb Data : 06/29/21 14:01 06/29/21 14:01 Results OB Labs 4-possible ectopic 1) 06/29/2021([facility]) CBC-7.9<13.4/39.7> 241 CMP-normal BUN/creatinine-7/0.7 AST/ALT 04/27 Quantitative beta-hCG 1298 Blood group: O positive Antibody screen: Negative Quantitative beta-hCG trend: 06/29/20215213-3261 07/01/2021-pending PAP Denies history of abnormal Pap smears in the past. 06/29/2021--patient states she is scheduled with her primary care provider Dr. Martinez for Pap smear 05/12/2015----([facility])-----> negative for intraepithelial lesion or malignancy OB Ultrasound 4-2021 1) 06/29/2021([facility]) -------> there is an irregularly-shaped fluid collection in the endometrial canal which does not look typical for gestational sac and it appears elongated. If this is a gestational sac measures 6 weeks and 3 days. No yolk sac or pole identified. No right adnexal masses consistent with history of right oophorectomy. In the left adnexa the ovaries seen and contain cysts with a thick-walled cyst with slight increased vascularity which is likely corpus luteum measuring 1.5 x 1.7 x 1.3 cm. Just lateral to the left ovary is a hypoechoic mass with a central cystic structure and it again has a thick walled with minimally increased peripheral vascularity which measures 1.9 x 1.6 x 1.9 cm. This is suspicious for an ectopic . Minimal simple free fluid in the cul-de-sac. 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 The right ovary measures 2.6 x 2.9 x 3.2 cm and the left ovary measures 2.7 x 2.3 x 2.8 cm. There is ovarian versus paraovarian mass measuring 10.3 x 9.3 x 8.6 cm present on the right ovary with ill-defined heterogenous soft tissue. Normal blood flow is noted bilaterally. There is a 2.1 x 2.7 cm fibroid in the fundus. Mammogram Has never needed a mammogram Colonoscopy Has never needed a colonoscopy A&P Assessment and plan (1) Early stage of : -I discussed with Ms. Gustafson and her partner today results of all the testing. Reviewed that hormone was definitely positive. Reviewed results of the ultrasound that shows a nonspecific fluid collection within the uterus which could be a gestational sac. I discussed that it does show a cyst in the left ovary that is likely corpus luteum. Discussed adjacent to this there is another cystic mass which could possibly be an ectopic . -I discussed with Ms. Gustafson that given her history of a previous tubal ligation my concern is that she has an ectopic . Although she is totally asymptomatic all that means is it has not ruptured. Discussed there is a slim chance that this is an intrauterine and given that there is a fluid collection within the uterus I cannot be certain that it is not a normal . -She and her partner were actually considering reversal procedures as they want to get so if this is a normal intrauterine it is a very desired . -Discussed options at this time with observation and strict follow-up of quantitative beta hCGs to see if it is a normal . Discussed the advantages and disadvantages of this option and discussed that there is no particular quantitative beta-hCG number where the ectopic will rupture and this could happen 30 minutes from now or never depending on if it is an ectopic. -Discussed the second option of using methotrexate-discussed with methotrexate his usual side effects. Discussed that if this is used it will kill all pregnancies whether it is in the fallopian tube or within the uterus and I would recommend doing this only once we are absolutely certain it is an ectopic given that an intrauterine is so highly desired by the patient and her partner. Discussed that methotrexate has strict criteria is for use and if there is concern for rupturing ectopic or she is unstable this is not an option. She understands this -Discussed the option of proceeding with surgery which will usually involve salpingectomy and she will lose her 1 remaining tube. What this means if there will not be a tube left to have any reconstruction on requiring surrogacy, IVF or adoption in order to have children. -Discussed if the ectopic ruptures there will be no tubal saving surgery and she will more than likely require salpingectomy. Discussed the possibility with rupture that the complex may involve the ovary requiring removal of her one remaining ovary. -All of these options-observation, methotrexate, surgical intervention with salpingectomy was discussed with patient--advantages disadvantages reviewed with patient. She and her partner were given time to discuss options and since this is a much desired if it is a normal intrauterine she desires observation. -Discussed that I would strongly recommend pelvic rest and she not travel away from [facility] so that she is able to have quick access to the hospital should there be a problem-rupture. -We will plan on doing a quantitative beta-hCG on 07/01/2021 at 11 AM and patient was given a lab slip for this -Anticipate follow-up with a repeat ultrasound on 07/[facility]/2021 at [facility] and visit with me afterwards. We will contact her by phone tomorrow with this appointment -She understands the risk of this ectopic rupturing and ER precautions were reviewed and she understands that should she have any symptoms of pain or discomfort she needs to contact the on-call punch operator on her way to the emergency room. -Dr. Villagomez who comes merchandising execution associate in the next 20 minutes was notified of this patient should she come in overnight. -All her questions were answered and she agrees with the current plan of care. I spent 50 minutes with the patient in discussion and counseling as documented above This documentation was created by [employer] country singer software (known for inherent country singer error). Every effort was made to assure accuracy of country singer. Any obvious errors or omissions should be clarified with the author of the document. Status: Acute Attestations Medical Necessity Statement*: Patient is discharged Coding Level of Care Code Acute Chemist Instrumentation for Chg Fwd Diagnoses Early stage of Z34.90
[2021-06-29 17:25] VITALS: BP 121/72; PULSE 81; RESP 18
== END 2021-06-29 17:25 | disposition home or self-care (01) ==
LOC: ER 14:52 → OBGYN 16:12
PROVIDERS: Physician Assistant; Admitting Provider Obstetrics & Gynecology; Emergency Provider Family Medicine; PCP Family Medicine; Visit Provider Obstetrics & Gynecology
DX: Z34.90 Encounter for supervision of normal pregnancy, unspecified, unspecified trimester (principal); Z3A.01 Less than 8 weeks gestation of pregnancy
CPT/HCPCS: 76801; 76817; 80053; 83690; 84702; 85025; 86850; 86900; 99211; G0378

== ENCOUNTER 2021-07-01 11:05 | Outpatient (CLI) | payer BC, SELFPAY | END 2021-07-01 11:06 | disposition home or self-care (01) | PROVIDERS: PCP Family Medicine; Visit Provider Obstetrics & Gynecology | DX: O00.90 Unspecified ectopic pregnancy without intrauterine pregnancy (principal) | CPT/HCPCS: 76817; 84702 ==

== ENCOUNTER → 2021-07-01 15:01 | Day surgery (SDC) | payer BC, SELFPAY ==
[2021-07-01 15:14] VITALS: BP 131/77; PULSE 73; RESP 18; TEMP 36.8; O2SAT 99; BMI 24.2
--- NOTE | 2021-07-01 16:26 | PC.NURSE ---
patient waited 10min after shot per doctor request. she did well. she did complain of some local pain at site of injection. patient left ambulatory with .
== END ==
PROVIDERS: PCP Family Medicine; Visit Provider Obstetrics & Gynecology
DX: O00.90 Unspecified ectopic pregnancy without intrauterine pregnancy (principal); Z3A.00 Weeks of gestation of pregnancy not specified
CPT/HCPCS: 96372; J9260

== ENCOUNTER 2021-07-03 12:17 | Emergency (ER) | payer BC, SELFPAY ==
[2021-07-03 12:23] VITALS: BP 97/68; PULSE 73; RESP 18; O2SAT 98; BMI 26.6
--- NOTE | 2021-07-03 12:28 | W.ED.PREGNAN ---
HPI - General: Chief complaint: OB/Uterine Contractions Stated complaint: Topic Time Seen by Provider: 07/03/21 12:27 History of Present Illness: Ms. Gustafson is a 35-year-old lady with known likely ectopic who presents emergency department due to vaginal bleeding and abdominal pain. She has a surgical history of bilateral tubal ligation as well as a right-sided salpingo-oophorectomy. LMP 05/19/2021. She initially presented to the emergency department and was found to have a positive beta-hCG on 06/29. She had ultrasound performed and ED OTOLARYNGOLOGY NURSE consultation. Patient was subsequently discharged and had outpatient follow-up on the with repeat ultrasound. At that time higher clinical suspicion for left-sided ectopic and patient was treated with methotrexate. She describes no vaginal bleeding prior to today and has had some abdominal pressure. 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 She does have mild associated lightheadedness with standing She additionally endorses sharp left lower quadrant and suprapubic pain. Intensity of pain is moderate to severe. This is episodic in nature. Pain is worse with movement. Denies other significant change in health, exacerbating, relieving factors. Onset (ago): hour(s) Pain Consistency: intermittent Location: abdomen Severity: moderate Quality: Sharp Relieving factors: none Vaginal bleeding: light Date of Last Menstrual Period: 05/20/21 Patient : Yes OB History - Current : other Review of Systems General: Reports: 10 or more systems reviewed and unremarkable except in HPI and below PFSH ED PFSH: Medical History No pertinent past medical history Denies diabetes, asthma, hypertension, seizures, DVT/PE PMD: Dr. Martinez in [facility] Surgical History History of tubal ligation 2009- tubal ligation by Dr. Tim via umbilicus Status post unilateral salpingo-oophorectomy 2015---laparoscopic right salpingo-oophorectomy performed for a 10 cm dermoid cyst performed by Dr. De Souza at [facility] [place]. Pelvic washings were negative for malignancy. 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 Fallopian tube pathology was benign. ---> At the time of surgery normal left ovary and signs of tubal ligation noted on left tube Family History Father CAD (coronary artery disease) Grandfather CAD (coronary artery disease) Maternal Diabetes Paternal Grandmother Cancer Breast cancer in maternal grandmother and great grand mother Other Hyperlipidemia Female Reproductive History: Date of last menstrual period: 05/20/21 Physical Exam Const: COMMON NORMALS: alert GENERAL APPEARANCE: cooperative, well developed and in distress (Episodic due to pain); not ill appearing HENMT: COMMON NORMALS: normocephalic and atraumatic HEAD & SCALP: normocephalic and atraumatic Eye: COMMON NORMALS: conjunctivae normal CONJUNCTIVA: Yes conjunctivae normal SCLERA: sclerae normal Neck/C-Spine: COMMON NORMALS: supple GENERAL: Yes trachea midline Resp: COMMON NORMALS: normal respiratory effort and clear to auscultation bilaterally EFFORT & INSPECTION: Yes able to speak in complete sentences AUSCULTATION: clear to auscultation bilaterally Cardio: COMMON NORMALS: regular rate and regular rhythm RATE: regular rate RHYTHM: regular rhythm GI: COMMON NORMALS: Soft to palpation PALPATION: Yes Soft to palpation, Yes Tenderness to palpation present (GI) Details: LLQ and other (Suprapubic), Yes Guarding due to palpation present (GI) (No evidence of peritonitis or remote peritonitis.) in the LLQ and No Rigid due to palpation Extremity: GENERAL: Yes normal exam except as noted and No edema Neuro: COMMON NORMALS: moves all extremities SENSORIUM/ORIENTATION: Yes alert and No Orientation impaired Psych: COMMON NORMALS: mental status grossly normal and Normal thought process present THOUGHT PROCESS: Normal thought process present Course ED course: - Patient was seen and evaluated by me at bedside - Patient placed on cardiac monitors, IV access obtained - Initial evaluation notable for exam as above, no evidence of local or remote peritonitis. Patient is not tachycardic and not hypotensive. - Analgesia and antiemetic ordered. - Dr. Crook of the OTOLARYNGOLOGY NURSE service was aware of this patient I called the emergency department, plan for labs and ultrasound imaging congruent with my already placed orders - Labs notable for minimal leukocytosis. Hemoglobin is mildly lower than prior though likely well within the context of normal variation in laboratory error. No acute electrolyte abnormalities requiring intervention. Beta hCG 985 (06/29 1298, 07/01 1148). - Imaging notable for small quantity of free fluid, no fluid is observed in Morison's pouch. There is no IUP as consistent with prior. Per radiology report today increased echogenicity in the left ovary, suspicious for fat in the setting of a dermoid. I discussed the read with Dr. Paris of [facility] to provide additional clinical context. Even with additional clinical context he does not feel that addendum or changes required based on his interpretation of imaging He reports reviewing prior imaging as well for comparison, overall very similar to prior. He does not identify a separate cystic mass in the left adnexa compared to ovary. - Discussed results of beta hCG, labs, and ultrasound report with Dr. Crook. He recommends continued medical management with previously established plan. - Upon serial reexamination after treatment the patient was improved with analgesia. Vital signs remained hemodynamically satisfactory without significant trending noted - Based on patient history, evaluation, labs, and imaging as interpreted the most likely cause of the patient's condition is abdominal pain in the context of ectopic currently undergoing medical management. - The results of ED evaluation were discussed with the patient including prescriptions and/or symptomatic cares (if applicable) including appropriate and responsible use, followup plan, and strict return precautions. The patient verbalized understanding and felt safe for discharge. - Patient discharged in satisfactory condition. Note: Click bubbles or prepopulated moyer in note writing are used for assistance with data collection and billing and are inherently more limited than narrative and other text portions of this note. Please use narrative for additional clinical history and defer to narrative/free test for any case of contradictory information. If information appears in only free text or click bubble it should be considered present or absent as reported. Please contact note contract writer for clarifications of clinical information or contradictory information. MDM is a brief summary, contradictory or erroneous seeming information should be clarified and full note should be reviewed. Vital Signs: Vital signs: Vital Signs Temperature 98.4 F 07/03/21 12:58 Pulse Rate 64 07/03/21 15:18 Respiratory Rate 18 07/03/21 15:09 Blood Pressure 112/68 07/03/21 15:18 Pulse Oximetry 96 07/03/21 15:18 MDM - OB/Uterine Contractions Medical Decision Making 35-year-old lady with history of right salpingo-oophorectomy and left tubal ligation presenting with known positive hCG and concern for ectopic currently undergoing medical management. She has left lower quadrant abdominal pain and spotting of blood. Vitals are satisfactory and hemoglobin fairly similar to her prior. After ED evaluation and with discussion with Dr. Crook in the OTOLARYNGOLOGY NURSE team patient to be discharged for continued medical management on methotrexate. Strict return precautions given. Medical Records I reviewed the patient's medical records. Lab Data I reviewed the patient's lab results. : 07/03/21 11:40 07/03/21 11:40 Radiology Impressions Transvaginal US 07/03/21 12:35 IMPRESSION: 1. No intrauterine gestational sac identified in the setting of reported positive . Correlation with serial quantitative beta hCG titers is recommended to differentiate between early , ectopic , and spontaneous . 2. Increased echogenicity in the left ovary, suspicious for fat in the setting of dermoid. Laboratory Results WBC 10.4 10^3/uL (4.0-10.0) H 07/03/21 11:40 RBC 4.22 10^6/uL (4.1-5.3) 07/03/21 11:40 Hgb 12.6 g/dL (11.5-15.3) 07/03/21 11:40 Hct 38.2 % (37.0-47.0) 07/03/21 11:40 MCV 90.5 fl (81-99) 07/03/21 11:40 MCH 29.9 pg (28.0-34.0) 07/03/21 11:40 MCHC 33.0 g/dL (30.0-36.0) 07/03/21 11:40 RDW 12.8 % (12.1-15.1) 07/03/21 11:40 Plt Count 233 10^3/cmm (130-400) 07/03/21 11:40 MPV 10.5 fL (7.4-10.4) H 07/03/21 11:40 Neut % (Auto) 78.4 % 07/03/21 11:40 Lymph % (Auto) 16.6 % 07/03/21 11:40 Stoddard % (Auto) 3.8 % 07/03/21 11:40 Eos % (Auto) 0.7 % 07/03/21 11:40 Baso % (Auto) 0.3 % 07/03/21 11:40 Neut # (Auto) 8.16 10^3/uL (1.8-7.7) H 07/03/21 11:40 Lymph # (Auto) 1.7 10^3/uL (0.8-4.8) 07/03/21 11:40 Stoddard # (Auto) 0.4 10^3/uL (0.2-0.9) 07/03/21 11:40 Eos # (Auto) 0.1 10^3/uL (0.0-0.8) 07/03/21 11:40 Baso # (Auto) 0.0 10^3/uL (0.0-0.1) 07/03/21 11:40 Nucleated RBC % (auto) 0 % 07/03/21 11:40 Nucleated RBCs # 0.0 /100WBC 07/03/21 11:40 Sodium 137 mmol/L (136-145) 07/03/21 11:40 Potassium 4.2 mmol/L (3.5-5.1) 07/03/21 11:40 Chloride 103 mmol/L (98-107) 07/03/21 11:40 Carbon Dioxide 22 mmol/L (22-29) 07/03/21 11:40 Anion Gap 16.2 (5-19) 07/03/21 11:40 BUN 8 mg/dL (6-20) 07/03/21 11:40 Creatinine 0.8 mg/dL (0.5-0.9) 07/03/21 11:40 GFR Calculation 82.1 mL/min (90-130) L 07/03/21 11:40 Glucose 101 mg/dL (65-115) 07/03/21 11:40 Calculated Osmolality 282 mOsm/kg (285-295) L 07/03/21 11:40 Calcium 8.6 mg/dL (8.5-10.5) 07/03/21 11:40 Total Bilirubin 0.4 mg/dL (0.15-1.2) 07/03/21 11:40 AST 12 U/L (0-32) 07/03/21 11:40 ALT 7 U/L (0-33) 07/03/21 11:40 Alkaline Phosphatase 76 IU/L (35-105) 07/03/21 11:40 Total Protein 6.9 g/dL (6.6-8.7) 07/03/21 11:40 Albumin 4.3 g/dL (3.5-5.2) 07/03/21 11:40 Globulin 2.6 g/dL (1.3-4.6) 07/03/21 11:40 Ser , Semi-Qnt 985.10 mIU/mL 07/03/21 11:40 Blood Type O Positive 07/03/21 11:40 Rho(D) Type Positive 07/03/21 11:40 Antibody Screen Negative 07/03/21 11:40 Discharge Plan Discharge Patient Disposition: Home Clinical Impression: Ectopic , Abdominal pain, Vaginal bleeding Condition: Stable Prescriptions: New oxycodone 5 mg tablet 5 mg PO Q4H PRN (Reason: pain) Qty: 10 0RF ondansetron 4 mg tablet,disintegrating 4 mg PO Q8H 5 Days Qty: 15 0RF No Action cyclobenzaprine 10 mg tablet 10 mg PO DAILY 0RF Mikayla 180 mg Tablet 180 mg PO DAILY 0RF naproxen 500 mg tablet 500 mg PO BID PRN (Reason: Pain) 0RF bupropion HCl [Wellbutrin XL] 150 mg Tablet Extended Release 24 Hr 150 mg PO QAM 0RF Discharge Orders: Discharge ED (Routine); Ordered 07/03/21 Ordered By: Waldemar Sloan Referrals: Yovany Martinez MD [Primary Care Provider] - Discharge Diet: Usual diet Discharge Activity: Limit activity as instructed Patient Instructions: Ectopic , Abdominal Pain (ED), Opioid Safety Activity Restrictions/Additional Instructions: Thank you for visiting the emergency department. You were seen and evaluated for abdominal pain in the context of current treatment for ectopic . After ED evaluation and discussion with OTOLARYNGOLOGY NURSE we will continue your current management plan. As discussed it is challenging to know when to return to the emergency department however please return with any changes including but not limited to worsening pain, lightheadedness, nausea or vomiting, worsening vaginal bleeding, or anything else that you are concerned about a feel needs emergency department evaluation. 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
--- NOTE | 2021-07-03 12:35 | USR_ITS ---
PROCEDURE INFORMATION: Exam: US Pelvis, Transvaginal Exam date and time: 07/03/2021 12:35 PM Age: 35 years old Clinical indication: Pelvic pain; Prior surgery; Surgery date: 6+ months; Surgery type: Tubal, RT oophorectomy; Additional info: Likely ectopic, bleeding, abd pain TECHNIQUE: Imaging protocol: Real-time transvaginal pelvic ultrasound with image documentation. Transvaginal imaging was used for better evaluation of the endometrium, adnexa, and/or cervix. COMPARISON: US OB transvaginal [id number] 07/01/2021 1:01 PM FINDINGS: Quantitative beta HCG titer is not known at the time of dictation. Uterus: Uterus measures 8.8 x 4.4 x 5.8 cm. Endometrium measures 12 mm in diameter. No intrauterine gestational sac identified. Correlation with serial quantitative beta hCG titers is recommended to differentiate between early , ectopic , and spontaneous . Cervix: Subcentimeter nabothian cyst. Right ovary/adnexa: Right oophorectomy. Left ovary/adnexa: Left ovary measures 3.9 by 2.4 by 2.2 cm. Increased echogenicity in the left ovary, suspicious for fat in the setting of dermoid. CT can be performed for further evaluation if clinically indicated. Left ovarian blood flow demonstrated. Intraperitoneal space: Small quantity of free fluid. US/US transvaginal [id number] IMPRESSION: 1. No intrauterine gestational sac identified in the setting of reported positive . Correlation with serial quantitative beta hCG titers is recommended to differentiate between early , ectopic , and spontaneous . 2. Increased echogenicity in the left ovary, suspicious for fat in the setting of dermoid.
[2021-07-03 12:58] VITALS: BP 100/72; PULSE 73; RESP 18; TEMP 36.9; O2SAT 98
[2021-07-03 12:59] LABS: Basophils % 0.3 %; Eosinophils # 0.1 10^3/uL (0.0-0.8); Eosinophils % 0.7 %; Hematocrit 38.2 % (37.0-47.0); Hemoglobin 12.6 g/dL (11.5-15.3); Lymphocytes # 1.7 10^3/uL (0.8-4.8); Lymphocytes % 16.6 %; Mean Corpuscular Hemoglobin 29.9 pg (28.0-34.0); Mean Corpuscular Volume 90.5 fl (81-99); Mean Platelet Volume 10.5 fL (7.4-10.4); Monocytes # 0.4 10^3/uL (0.2-0.9); Monocytes % 3.8 %; Neutrophils # 8.16 10^3/uL (1.8-7.7); Neutrophils % 78.4 %; Nucleated Red Blood Cells % 0 %; Platelet Count 233 10^3/cmm (130-400); Red Blood Count 4.22 10^6/uL (4.1-5.3); Red Cell Distribution Width 12.8 % (12.1-15.1); White Blood Count 10.4 10^3/uL (4.0-10.0)
[2021-07-03] MEDS: fentaNYL 50 mcg/mL INJ 2mL IVP ×2 (13:08→15:09)
[2021-07-03] MEDS: ondansetron 2 mg/ML SDV 2 mL 4 MG IVP (13:08)
[2021-07-03 13:34] LABS: Alanine Aminotransferase 7 U/L (0-33); Albumin Level 4.3 g/dL (3.5-5.2); Alkaline Phosphatase 76 IU/L (35-105); Anion Gap 16.2 (5-19); Aspartate Amino Transferase 12 U/L (0-32); Blood Urea Nitrogen 8 mg/dL (6-20); Calcium 8.6 mg/dL (8.5-10.5); Carbon Dioxide 22 mmol/L (22-29); Chloride 103 mmol/L (98-107); Globulin 2.6 g/dL (1.3-4.6); Glomerular Filtration Rate 82.1 mL/min (90-130); Glucose 101 mg/dL (65-115); Osmolality Calculated 282 mOsm/kg (285-295); Potassium 4.2 mmol/L (3.5-5.1); Sodium 137 mmol/L (136-145); Total Bilirubin 0.4 mg/dL (0.15-1.2); Total Protein 6.9 g/dL (6.6-8.7)
[2021-07-03 15:05] VITALS: BP 112/68; PULSE 62; RESP 18; O2SAT 97
[2021-07-03 15:09] VITALS: RESP 18
[2021-07-03 15:18] VITALS: BP 112/68; PULSE 64; O2SAT 96
== END 2021-07-03 15:19 | disposition home or self-care (01) ==
PROVIDERS: Obstetrics & Gynecology; Emergency Provider Emergency Medicine; PCP Family Medicine
DX: O00.90 Unspecified ectopic pregnancy without intrauterine pregnancy (principal); O08.89 Other complications following an ectopic and molar pregnancy
CPT/HCPCS: 76830; 80053; 84702; 85025; 86850; 86900; 96374; 96375; 99284; J2405; J3010

== ENCOUNTER 2021-07-04 06:00 | Outpatient (CLI) | payer BC, SELFPAY | END 2021-07-04 06:01 | disposition home or self-care (01) | LOC: LAB 07-12 14:22 | PROVIDERS: PCP Family Medicine; Visit Provider Obstetrics & Gynecology | DX: O00.90 Unspecified ectopic pregnancy without intrauterine pregnancy (principal) | CPT/HCPCS: 36415 ==

== ENCOUNTER 2021-07-07 08:36 | Outpatient (CLI) | payer BC, SELFPAY | END 2021-07-07 08:37 | disposition home or self-care (01) | LOC: LAB 08:38 | PROVIDERS: PCP Family Medicine; Visit Provider Obstetrics & Gynecology | DX: O00.90 Unspecified ectopic pregnancy without intrauterine pregnancy (principal) | CPT/HCPCS: 84702 ==

== ENCOUNTER → 2021-07-13 13:35 | Outpatient (BNVA) | payer BC, SELFPAY | PROVIDERS: PCP Family Medicine; Visit Provider Obstetrics & Gynecology | DX: O00.90 Unspecified ectopic pregnancy without intrauterine pregnancy (principal) | CPT/HCPCS: 84702 ==

== ENCOUNTER → 2021-07-21 13:40 | Outpatient (BNVA) | payer BC, SELFPAY | PROVIDERS: PCP Family Medicine; Visit Provider Obstetrics & Gynecology | DX: O00.90 Unspecified ectopic pregnancy without intrauterine pregnancy (principal) | CPT/HCPCS: 84702 ==

== ENCOUNTER 2022-01-14 11:52 | Outpatient (CLI) | payer OTHER, SELFPAY ==
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
== END 2022-01-14 11:53 | disposition home or self-care (01) ==
LOC: RAD 11:53
PROVIDERS: PCP Family Medicine; Visit Provider Family Medicine Adult Medicine
DX: R07.81 Pleurodynia (principal); W19.XXXA Unspecified fall, initial encounter
CPT/HCPCS: 71101; 80307

== ENCOUNTER 2022-05-01 21:45 | Emergency (ER) | payer BC, SELFPAY ==
[2022-05-01 21:58] VITALS: BP 122/83; PULSE 75; RESP 16; TEMP 36.7; O2SAT 99; BMI 26.4
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
== END 2022-05-02 01:05 | disposition home or self-care (01) ==
PROVIDERS: Emergency Provider Physician Assistant; PCP Family Medicine
DX: S13.4XXA Sprain of ligaments of cervical spine, initial encounter (principal); F17.210 Nicotine dependence, cigarettes, uncomplicated; V50.5XXA Driver of pick-up truck or van injured in collision with pedestrian or animal in traffic accident, initial encounter
CPT/HCPCS: 71045; 72100; 72125; 73110; 99284